=== PATIENT | male | born 2000 | race African-American/Black ===

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

== ENCOUNTER 2021-07-14 21:53 | Emergency (ER) | payer OTHER ==
[~2021-07-14] VITALS: Ht 185.4 cm; Wt 122.5 kg
[2021-07-14] MEDS ORDERED: DOXYCYCLINE 10100 MG PO (22:39)
[2021-07-14 22:48] VITALS: BP 150/91
[2021-07-14 23:01] LABS: INFLUENZA A ANTIGEN Negative (Negative); INFLUENZA B ANTIGEN Negative (Negative)
== END 2021-07-14 22:48 | disposition home or self-care (01) ==
LOC: M.ERS 21:53
PROVIDERS: Student in an Organized Health Care Education/Training Program
DX: U07.1 COVID-19 (principal); J12.82 Pneumonia due to coronavirus disease 2019